=== PATIENT | female | born 1990 | race Caucasian/White ===

== ENCOUNTER 2017-08-05 17:31 | Inpatient (IN) | payer MEDICAID, OTHER ==
[2017-08-05 17:40] VITALS: BMI 27.4
[2017-08-05] MEDS ORDERED: Lactated Ringer's 500 ML IV SCH (18:15)
[2017-08-05 18:44] LABS: BASO % 0.4 % (0.0-2.0); EOS # 0.1 K/uL (0.0-0.7); EOS % 0.5 % (0.0-4.0); HEMATOCRIT 39.1 % (34.0-47.0); LYMPH # 1.9 K/uL (1.0-4.3); LYMPH % 16.5 % (20.0-40.0); MEAN CELL VOLUME 92.5 fl (81.0-99.0); MEAN CORPUSCULAR HEMOGLOBIN 30.6 pg (27.0-31.0); MEAN CORPUSCULAR HGB CONC 33.1 g/dL (33.0-37.0); MEAN PLATELET VOLUME 8.2 fl (7.2-11.7); MONO # 0.7 K/uL (0.0-0.8); MONO % 5.8 % (0.0-10.0); NEUT % 76.8 % (50.0-75.0); NRBC % 0.1 % (0.0-0.0); RED CELL DISTRIBUTION WIDTH 13.7 % (11.5-14.5); WHITE BLOOD COUNT 11.7 K/uL (4.8-10.8)
[2017-08-05] MEDS ORDERED: Lidocaine 2% Inj (20ml) ONE (23:57)
[2017-08-06] MEDS ORDERED: Oxycodone/Acetaminophen 5/325 mg Tab PO PRN ×2 (00:41→01:42)
[2017-08-06] MEDS ORDERED: Benzocaine/Menthol SPRAY TOP PRN ×2 (00:41→01:42)
[2017-08-06 05:53] LABS: HEMATOCRIT 36.3 % (34.0-47.0); MEAN CELL VOLUME 91.5 fl (81.0-99.0); MEAN CORPUSCULAR HEMOGLOBIN 30.2 pg (27.0-31.0); RED CELL DISTRIBUTION WIDTH 13.8 % (11.5-14.5); WHITE BLOOD COUNT 17.3 K/uL (4.8-10.8)
[2017-08-06] MEDS ORDERED: Influenza Vaccine 18yr & older 0.5 ML/45 MCG SYR IM ONE (06:22)
--- NOTE | 2017-08-06 08:36 | OBDS ---
DELIVERY PERSONNEL Delivery Doctor: Azul Watson MD Scrub Nurse: Katharine Farley Etl Manager: Anaya Asencio RN Resident: Johnnie Hussein MATERNAL INFORMATION Delivery Anesthesia: Local Estimated Blood Loss (ml): 200 (Annotations: Data stored by CPN on behalf of user) Placenta Cultured: No Maternal Complications: None Provider Comments: Normal spontaneous vaginal delivery. Patient delivered viable with Apgars of 9 and 9 at one and 5 minutes respectively. Placenta delivered spontaneously. First degree labial laceration repaired with 2. 0 Rapide after infiltrated with 1% lidocaine. Patient tolerated delivery and repair well. Uterus firm and appropriately hemostat ic following delivery. No complications. Arrest medical loss 200 mL LABOR SUMMARY EDC: 08/06/2017 00:00 No. Babies in Womb: 1 Attempted: No Labor Anesthesia: None LABOR INFORMATION Reason for Induction: Polyhydramnios Onset of Labor: 08/05/2017 23:33 Complete Dilatation: 08/06/2017 00:26 Oxytocin: N/A Group B Beta Strep: Negative Antibiotics # of Doses: 0 Steroids Given: None Reason Steroids Not Administered: Not Applicable MEMBRANES Membranes Rupture Method: Artificial Rupture of Membranes: 08/05/2017 23:35 Length of Rupture (hrs): 0.90 Amniotic Fluid Color: Clear Amniotic Fluid Amount: Moderate Amniotic Fluid Odor: Normal STAGES OF LABOR Stage 1 hrs: 0 Stage 1 min: 53 Stage 2 hrs: 0 Stage 2 min: 3 Stage 3 hrs: 0 Stage 3 min: 4 Total Time in Labor hrs: 1 Total Time in Labor min: 0 VAGINAL DELIVERY Episiotomy: None Laceration Extension: First Degree Laceration Type: Perineal Laceration Repair: Yes Initial Vag Sponge Count: 15 Final Vag Sponge Count: 15 Initial Vag Sharps Count: 2 Final Vag Sharps Count: 2 Sponge Count Correct: N/A Sharps Count Correct: Yes BABY A INFORMATION Delivery Date/Time: 08/06/2017 00:29 Method of Delivery: Vaginal Born in Route : No : N/A Forceps: N/A Vacuum Extraction: N/A Shoulder Dystocia : No SHOULDER DYSTOCIA BABY A Infant Delivery Date/Time: 08/06/2017 00:29 PRESENTATION/POSITION BABY A Presentation: Cephalic Cephalic Presentation: Vertex Breech Presentation: N/A PLACENTA INFORMATION BABY A Placenta Delivery Time : 08/06/2017 00:33 Placenta Method of Delivery: Spontaneous Placenta Status: Delivered SCORES BABY A Heart Rate 1 min: >100 bpm Resp Effort 1 min: Good Cry Reflex Irritability 1 min: Cough or Sneeze or Pulls Away Muscle Tone 1 min: Active Motion Color 1 min: Body [place], Extremities Blue Resuscitation Effort 1 min: N/A SCORE 1 MIN: 9 Heart Rate 5 min: >100 bpm Resp Effort 5 min: Good Cry Reflex Irritability 5 min: Cough or Sneeze or Pulls Away Muscle Tone 5 min: Active Motion Color 5 min: Body [place], Extremities Blue Resuscitation Effort 5 min: N/A SCORE 5 MIN: 9 INFANT INFORMATION BABY A Gestational Age at Delivery: 40.0 Gestational Status: Term Infant Outcome : Liveborn Infant Condition : Stable Sex: Female IDENTIFICATION/MEDS BABY A ID Band Location: Left Leg; Left Arm WEIGHT/LENGTH BABY A Infant Birthweight (gms): 4005 Weight (lb): 8 Infant Weight (oz): 13 CORD INFORMATION BABY A No. Cord Vessels: 3 Nuchal Cord : N/A Cord Blood Taken: Yes Infant Suction: None ASSESSMENT BABY A Infant Complications: None Physical Findings at Delivery: Within Normal Limits Respirations: Appears Normal [employer] Member/ALS Called : No Care By: Marjan Vega RN Transferred To: Remains with Mother
--- NOTE | 2017-08-06 08:38 | OBADHP ---
Datetime: 08/05/2017 18:58 IP Chief Complaint Other: Induction of Labor Admit Comment, IP Provider: 27 y/o female at 39.6 weeks gestation presents with Polyhydramnios. Pt was getting a Growth U/S today and was found to have Polyhydramnios and cloudy amniotic flu id cannot rule out meconium. Recommended by radiologist for induction of labor. Patient is not in an y active labor. Denies contractions, vaginal bleeding, and vaginal fluid loss. Reports good mov ement. PNC: LMP 10/30/2016. Receives PNC from Dr. Johnnie Herrera at [facility]. As per patient, pr enatal care thus far has been non remarkable. Patient has a Hx of Herpes and has been taking Valtrex prophylactically. OBHx: Patient has hx of 3 , full term, and denies complications of preeclampsia, gestational d iabetes, hemorrhage, and infection. She has hx of 1 spontaneous 1st trimester miscarriage. [employer] Hx: Last pap smear 07/17/16, History of Herpes Zoster. No active infection at the moment. Medical Hx: No chronic illnesses Surgical Hx: None Medications: Valtrex 1 gram, PNV Allergies: NKDA Social: Denies smoking, alcohol, or drug use Triage Vitals: BP 103/51 , Afebrile Physical Exam: General: Seen lying in bed, comfortably, NAD, alert and oriented HEENT: No facial edema, jaundice, or pallor Cardiac: RRR, Normal S1 and S2, no murmurs Pulmonary: Clear to auscultation BL; No crackles Abdomen: Gravid, NT, cephalic presentation Extremities: No pedal edema Genital: no active herpetic lesions HR: 140, moderate variability, + accelerations, no decelerations Labs: GBS negative, HIV non reactive, RPR nonreactive, Blood Type O positive, 1hr GTT pos itive, 3hour GTT negative, Assessment: IUP at 39.6 weeks gestation with polyhydramnios, not in active labor admitted to Labor and Deliver y for induction. Plan: Monitor for progression of labor and plan for induction LR 500ml at 125ml/hr NPO CBC Type and Screen Hep B Surface antigen Rubella IgG Pelvic Type - PN: Adequate Extremities - PN: Normal Abdomen - PN: Normal Back - PN: Normal Breast - PN: Normal Lungs - PN: Normal Heart - PN: Normal Thyroid - PN: Normal Neurologic - PN: Normal HEENT - PN: Normal General - PN: Normal IP Hx Assessment: The History has been Updated Vital Signs Provider: Reviewed IP Chief Complaint: Other Dilatation, Provider: 1 Genitourinary Exam: Normal DTRs - PN: Normal EGA AdmitDate IP: 39.6 IP Adm Impression: Term, intrauterine ; No Active Labor IP Admit Plan: Admit to unit
[2017-08-07] MEDS ORDERED: Pneumococcal 23-Valent Vaccine IM ONE (06:30)
--- NOTE | 2017-08-08 10:46 | OBPPN ---
Datetime: 08/08/2017 07:56 PP Pain Prov: Within normal limits PP Nausea Prov: Denies PP Flatus Prov: Yes PP BM Prov: Yes PP Breasts Prov: Normal PP Heart Prov: Normal PP Lungs Prov: Normal PP Abdomen/Uterus Prov: Normal PP Lochia Prov: Normal PP Vulva/Perineum Prov: Normal PP CVA Tenderness Prov: Not Done PP Extremities Prov: Normal PP C/S Incision Prov: Not Applicable PP Progress Prov: Normal PP Comments Phys Exam Prov: Uterus: firm below umbilicus PP Impression Prov: Normal progression PP Plan Prov: Continue present management PP Progress Note Prov: 27 yo , seen and examined bedside. Patient had uneventful overnight. she reports mild pelvic pain controlled w/ pain meds. OOB/Ambulating w/o dizziness. Breast/bottle f eeding w/o difficulty. Tolerating PO diet well. Lochia is less than menses in volume. Voiding free ly w/ no blood noted. Reports + flatus and 2 BM yesterday. Denies fevers, chills, n/v/d, CP/SOB, lig htheadedness and calf pain. Assessment: 27 yo, s/p on 08/06/17 @ 00:29 am tolerating pain w/ medication, tole rating oral intake, adequate urine output, doing well on PPD#2 Plan: - Mild/mod pain PRN: Ibuprofen 600 mg 1 tab Q6h PO -Encourage breast feeding and ambulation -Discharge today Mark Méndez PGY2 Vital Signs Provider PP: Reviewed; Within Normal Limits Datetime: 08/07/2017 06:36 IP PP Procedures: None
--- NOTE | 2017-08-08 10:46 | OBDCSUM ---
Datetime: 08/08/2017 07:59 Discharged to, Provider: Home Follow up at, Provider: [facility] Disch Instr Activity: Normal activity Disch Instr Diet: Regular Discharge Instructions, Provider: Routine instructions given Discharge Diagnosis, Provider: Term Delivered Discharge Time: 08/08/2017 07:59 Follow up in weeks, Provider: 6 weeks Disch Activity Restrictions: No exercising; No sexual activity; Nothing in vagina - Robbins, dewey luci geiger Discharge Comment, Provider: 27 yo , s/p @ 39.6 weeks GA Delivered baby girl on 08/06/17 @ 00:29 am ,weight 4005 g , : 9-9. Patient doing well, stable for discharge. Prescription given for pain -Encourage -Ibuprofen 600 mg PO 1 tab PO Q6h for pain PRN -Discharge today Ambulate w/ caution, nothing in vagina, no heavy lifting, avoid stairs, if excessive bleeding or f ever without relief from Tylenol go to ED - Advised for F/U [facility] within 7 days and 2-3 days for infant with pediatric bryson.
[2017-08-08 18:00] VITALS: BP 111/62; PULSE 83; RESP 19; TEMP 98.6; O2SAT 100
== END 2017-08-08 13:05 | disposition home or self-care (01) | DRG 373 ==
LOC: H.EROB2 17:31 → H.MEDSURG1 18:00 → H.L&D 18:00 → H.OB/GYN 08-06 02:15
PROVIDERS: ADMIT Obstetrics & Gynecology; ATTEND Obstetrics & Gynecology
PROC: 10E0XZZ Delivery of Products of Conception, External Approach (ICD-10-PCS; principal; 2017-08-05)
PROC: 0HQ9XZZ Repair Perineum Skin, External Approach (ICD-10-PCS; 2017-08-05)
PROC: 4A1HXCZ Monitoring of Products of Conception, Cardiac Rate, External Approach (ICD-10-PCS; 2017-08-05)
DX: O40.3XX0 Polyhydramnios, third trimester, not applicable or unspecified (principal); O70.0 First degree perineal laceration during delivery; Z37.0 Single live birth; Z3A.39 39 weeks gestation of pregnancy

== ENCOUNTER 2017-10-12 18:36 | Emergency (ER) | payer OTHER ==
[2017-10-12 18:36] VITALS: BMI 27.4
[2017-10-12 18:49] VITALS: RESP 18
[2017-10-12] MEDS ORDERED: Iohexol 240 (50 ml) PO STA (19:49)
[2017-10-12] MEDS ORDERED: Iohexol 240 (50 ml) ONE (19:56)
--- NOTE | 2017-10-12 20:15 | ED PDOC ---
HPI: Abdomen Time Seen by Provider: 10/12/17 18:54 Chief Complaint (Nursing): Abdominal Pain Chief Complaint (Provider): Right sided groin pain Past Medical History Vital Signs: Last Vital Signs Temp 97 F L 10/12/17 18:46 Pulse 65 10/12/17 18:46 Resp 18 10/12/17 18:46 BP 122/71 10/12/17 18:46 Pulse Ox 100 10/12/17 18:46 - Medical History PMH: Denies: Depression, Diabetes, HTN - Family History Family History: States: Unknown Family Hx - Immunization History Hx Tetanus Toxoid Vaccination: No Hx Influenza Vaccination: No Hx Pneumococcal Vaccination: No - Home Medications Home Medications: Ambulatory Orders Medication Instructions Recorded Multivit/Folic Acid/I 1 tab PO DAILY MDD 1 tab 08/05/17 [] Ibuprofen [Motrin Tab] 600 mg PO Q6 PRN tab 08/08/17 - Allergies Allergies/Adverse Reactions: Allergies Allergy/AdvReac Type Severity Reaction Status Date / Time No Known Allergies Allergy Verified 12/20/16 08:55 - ECG O2 Sat by Pulse Oximetry: 100 Disposition - Clinical Impression Clinical Impression: Abdominal pain - Patient ED Disposition Is Patient to be Admitted: Transfer of Care - Disposition Disposition: Transfer of Care Disposition Time: 20:15 Condition: GOOD
--- NOTE | 2017-10-12 20:37 | ED PDOC ---
- Laboratory Results Result Diagrams: 10/12/17 20:20 10/12/17 20:20 - ECG O2 Sat by Pulse Oximetry: 100 - Progress ED Course And Treament: pt signed out to freelance writer pending CT to r/o hernia. on exam hernia is reducible mildly tender afebrile. Vital Signs - 24 hr 10/12/17 10/12/17 18:46 20:15 Temperature 97 F L Pulse Rate 65 Respiratory 18 Rate Blood Pressure 122/71 O2 Sat by Pulse 100 100 Oximetry Medical Decision Making Medical Decision Making: ct scan: PELVIS: Bladder: unremarkable Reproductive: Uterus and left adnexal structures are unremarkable. There is prominence of the right adnexa. Right adnexa measures approximately 6 x 5 x 4 cm. complex fatty component measures approximately 4.5 x 4 x 4 cm. ABDOMEN and PELVIS: Intraperitoneal space: There is no significant fluid.There is no free air. Bones/joints: There are no acute osseous abnormalities. Soft tissues: There is a small fat containing umbilical hernia. Vasculature: Vascular structures are unremarkable. Lymph nodes: There are enlarged right inguinal nodes. There is inflammation in the right groin. There is no pathologic para-aortic adenopathy. There are shotty mesentery nodes. IMPRESSION: Multiple mildly enlarged right inguinal nodes with inflammation in the right groin; right ovarian dermoid; constipation; fatty liver; no CT findings of appendicitis Pt is stable for d.c at his time. advised to consume mortin for any discomfort Temp Pulse Resp BP Pulse Ox 97 F L 65 18 122/71 100 10/12/17 18:46 10/12/17 18:46 10/12/17 18:46 10/12/17 18:46 10/12/17 20:37 . Disposition - Clinical Impression Clinical Impression: Inguinal lymphadenopathy - POA Present On Arrival: None - Disposition Referrals: [facility] [Outside] Disposition: Routine/Home Disposition Time: 23:53 Condition: GOOD Prescriptions: Ciprofloxacin [Cipro] 250 mg PO BID #14 tab Instructions: Lymphadenopathy (ED) Forms: [facility] (Cuban) Progress Note - Review of Symptoms General: No: Chills, Night Sweats, Fatigue, Malaise, Appetite, Other HEENT: No: Head Aches, Visual Changes, Eye Pain, Ear Pain, Dysphasia, Sinus Congestion, Post Nasal Drip, Sore Throat, Other Pulmonary: No: Dyspnea, Cough, Pleuritic Chest Pain, Other Cardiovascular: No: Chest Pain, Palpitations, Orthopnea, Paroxysmal Noc. Dyspnea , Edema, Light Headedness, Other Gastrointestinal: No: Nausea, Vomiting, Abdominal Pain, Diarrhea, Constipation, Melena, Hematochezia, Other Genitourinary: No: Dysuria, Frequency, Incontinence, Hematuria, Retention, Other Musculoskeletal: No: Muscle Pain, Joint Pain, Other
[2017-10-12 20:52] LABS: BASO # 0.1 K/uL (0.0-0.2); BASO % 0.6 % (0.0-2.0); EOS # 0.2 K/uL (0.0-0.7); EOS % 2.1 % (0.0-4.0); LYMPH # 2.4 K/uL (1.0-4.3); LYMPH % 23.4 % (20.0-40.0); MEAN CELL VOLUME 92.2 fl (81.0-99.0); MEAN CORPUSCULAR HEMOGLOBIN 30.3 pg (27.0-31.0); MEAN CORPUSCULAR HGB CONC 32.8 g/dL (33.0-37.0); MONO # 0.9 K/uL (0.0-0.8); MONO % 9.3 % (0.0-10.0); NEUT # 6.6 K/uL (1.8-7.0); NEUT % 64.6 % (50.0-75.0); NRBC % 0.1 % (0.0-0.0); RED CELL DISTRIBUTION WIDTH 13.5 % (11.5-14.5); WHITE BLOOD COUNT 10.2 K/uL (4.8-10.8)
[2017-10-12 21:02] LABS: ALB/GLOB RATIO 1.2 (1.0-2.1); ALKALINE PHOSPHATASE 73 U/L (38-126); ALT/SGPT 36 U/L (9-52); AST/SGOT 27 U/L (14-36); BILIRUBIN,TOTAL 0.5 mg/dl (0.2-1.3); BLOOD UREA NITROGEN 15 mg/dl (7-17); CALCIUM 9.1 mg/dL (8.4-10.2); CARBON DIOXIDE 26 mmol/L (22-30); CHLORIDE 105 mmol/L (98-107); GFR AFRICAN-AMERICAN > 60; GLUCOSE,RANDOM 110 mg/dL (65-105); POTASSIUM 4.2 MMOL/L (3.6-5.0); SODIUM 141 mmol/l (132-148)
[2017-10-12] MEDS ORDERED: Iohexol 300 100 ML IJ ONE (22:08)
--- NOTE | 2017-10-12 23:40 | CT ---
EXAM: CT Abdomen and Pelvis With Intravenous Contrast EXAM DATE/TIME: 10/12/2017 7:49 PM CLINICAL HISTORY: 27 years old, female; Pain; Abdominal pain; Localized; Right lower quadrant (rlq); Additional info: Right sided pain, hernia TECHNIQUE: Axial computed tomography images of the abdomen and pelvis with intravenous contrast. All CT scans at this facility use one or more dose reduction techniques, viz.: automated exposure control; ma/kV adjustment per patient size (including targeted exams where dose is matched to indication; i.e. head); or iterative reconstruction technique. Coronal and sagittal reformatted images were created and reviewed. CONTRAST: 90 mL of [id number] administered intravenously. COMPARISON: There are no prior studies for comparison. FINDINGS: Lower thorax: Heart size is normal. There is minimal dependent atelectasis and scarring at the lung bases. There is a 5 mm peripheral nodular opacity in the right middle lobe. ABDOMEN: Liver: There is fatty infiltration of the liver. Gallbladder and bile ducts: unremarkable Pancreas: unremarkable Spleen: unremarkable Adrenals: unremarkable Kidneys and ureters: unremarkable Stomach and bowel: Stomach is partially distended with contrast and food. Rotation is normal. There is no obstruction. There is contrast throughout the small bowel. Ileocecal region is unremarkable. There is moderate stool and air in the colon. Appendix: See stomach and bowel PELVIS: Bladder: unremarkable Reproductive: Uterus and left adnexal structures are unremarkable. There is prominence of the right adnexa. Right adnexa measures approximately 6 x 5 x 4 cm. complex fatty component measures approximately 4.5 x 4 x 4 cm. ABDOMEN and PELVIS: Intraperitoneal space: There is no significant fluid.There is no free air. Bones/joints: There are no acute osseous abnormalities. Soft tissues: There is a small fat containing umbilical hernia. Vasculature: Vascular structures are unremarkable. Lymph nodes: There are enlarged right inguinal nodes. There is inflammation in the right groin. There is no pathologic para-aortic adenopathy. There are shotty mesentery nodes. IMPRESSION: Multiple mildly enlarged right inguinal nodes with inflammation in the right groin; right ovarian dermoid; constipation; fatty liver; no CT findings of appendicitis Additional findings as described above.
[2017-10-13 00:02] VITALS: BP 127/65; PULSE 75; TEMP 98.2; O2SAT 98
== END 2017-10-13 00:40 | disposition home or self-care (01) ==
LOC: H.ER 18:36
DX: R59.0 Localized enlarged lymph nodes (principal); K76.0 Fatty (change of) liver, not elsewhere classified
CPT/HCPCS: 74177; 80053; 81025; 85025; 99283; Q9966; Q9967